=== PATIENT | female | born 1970 | race African-American/Black ===

== ENCOUNTER 2020-01-05 10:01 | Emergency (ER) | payer OTHER ==
[~2020-01-05] VITALS: Ht 167.6 cm; Wt 68.0 kg
[2020-01-05] MEDS ORDERED: VENTOLIN HFA 1818 GM INH (10:14)
[2020-01-05] MEDS ORDERED: PREDNISONE 10 M10 M1 PO (10:14)
[2020-01-05] MEDS ORDERED: NORCO 5-325 TA1 EAC1 PO (11:04)
[2020-01-05 11:11] VITALS: BP 126/90
== END 2020-01-05 11:15 | disposition home or self-care (01) ==
LOC: ER 10:01
DX: R07.89 Other chest pain (principal); D86.9 Sarcoidosis, unspecified; Z79.899 Other long term (current) drug therapy

== ENCOUNTER 2020-05-06 13:46 | Emergency (ER) | payer OTHER ==
[~2020-05-06] VITALS: Ht 170.2 cm; Wt 68.0 kg
[~2020-05-06 13:46] MED LIST: NORCO 5-325 TA1 EAC1 PO; PREDNISONE 10 M10 M1 PO; VENTOLIN HFA 1818 GM INH
[2020-05-06] MEDS ORDERED: ADVAIR 100-501 EACH INH (13:55)
[2020-05-06] MEDS ORDERED: TIZANIDINE4 MG/1 TA1 PO (14:27)
[2020-05-06 14:30] VITALS: BP 134/109
[2020-05-06] MEDS ORDERED: PREDNISONE 20 M20 MG PO (14:33)
== END 2020-05-06 14:30 | disposition home or self-care (01) ==
LOC: ER 13:46
DX: M54.2 Cervicalgia (principal); M25.512 Pain in left shoulder; Z79.899 Other long term (current) drug therapy; V49.9XXA Car occupant (driver) (passenger) injured in unspecified traffic accident, initial encounter; Y93.89 Activity, other specified; Y92.89 Other specified places as the place of occurrence of the external cause; Y99.8 Other external cause status

== ENCOUNTER → 2020-06-14 | Outpatient (CLI) | payer OTHER ==
[~2020-06-14] MED LIST changes: +ADVAIR 100-501 EACH INH; +PREDNISONE 20 M20 MG PO; +TIZANIDINE4 MG/1 TA1 PO
== END ==
LOC: SJCVC 10:39
PROVIDERS: ATTEND Internal Medicine Cardiovascular Disease
DX: R94.31 Abnormal electrocardiogram [ECG] [EKG] (principal); I49.1 Atrial premature depolarization; I25.10 Atherosclerotic heart disease of native coronary artery without angina pectoris; Z72.0 Tobacco use; Z79.899 Other long term (current) drug therapy